=== PATIENT | male | born 1970 | race African-American/Black ===

== ENCOUNTER 2017-03-05 21:08 | Emergency (ER) | payer OTHER ==
[~2017-03-05] VITALS: Ht 170.2 cm; Wt 85.2 kg
[2017-03-05 21:43] LABS: HEMATOCRIT 37.2 % (38.0-50.0); MCH 31.7 PG (29.0-34.0); MCHC 33.3 G/DL (30.0-36.0); MCV 95.1 FL (86-99); PLATELET COUNT 172 K/uL (156-360); RBC DIS.WIDTH-CV 14.1 % (11.8-14.6); RED BLOOD COUNT 3.91 M/uL (4.00-5.50)
[2017-03-05 21:54] LABS: CHLORIDE 102 mEq/L (99-109); POTASSIUM 3.6 mEq/L (3.7-5.4); SODIUM 139 mEq/L (136-147)
[2017-03-05 21:56] LABS: GLUCOSE 84 mg/dL (70-99)
[2017-03-05 21:58] LABS: ANION GAP 18 MEQ/L (2-14)
[2017-03-05 22:00] LABS: GFR ESTIMATE (CALCULATED) > 59 mL/min/
[2017-03-05 22:01] LABS: UREA NITROGEN (BUN) 11 mg/dL (9-23)
[2017-03-05 23:19] LABS: SAMPLE HEMOLYSIS CHECK 0; SAMPLE ICTERIC CHECK 0; SAMPLE LIPEMIA CHECK 0
[2017-03-05 23:25] LABS: SERUM ETHYL ALCOHOL < 10 mg/dL
[2017-03-05 23:27] LABS: TROP-I INTERPRETATION NEGATIVE; TROPONIN-I 0.02 ng/mL (0.0-0.30)
[2017-03-06 01:59] VITALS: BP 142/79
== END 2017-03-06 01:59 | disposition home or self-care (01) ==
LOC: EME 21:08
PROVIDERS: Emergency Medicine
DX: R55 Syncope and collapse (principal); E86.0 Dehydration
CPT/HCPCS: 71020; 80048; 84484; 85027; 93005; 99281; 99285; G0480; J7030